=== PATIENT | female | born 1995 | race Two or more races ===

== ENCOUNTER 2020-02-04 09:50 | Inpatient (IN) | payer OTHER ==
[2020-02-04] MEDS ORDERED: ELECTROLYTE-148 SOLN 1,000 ML IV SCH ×2 (11:00→13:30)
[2020-02-04 11:34] VITALS: BMI 29.2
[2020-02-04 12:35] LABS: BASO % 0.4 % (0-2.0); EOS % 3.1 % (0-4.5); HEMATOCRIT 38.8 % (32.4-45.2); HEMOGLOBIN 12.9 GM/dL (10.7-15.3); MCH 29.2 pg (25.7-33.7); MCHC 33.2 g/dl (32.0-36.0); MEAN CELL VOLUME 87.8 fl (80-96); MEAN PLT VOLUME 10.3 fl (7.5-11.1); MONO % 8.6 % (3.8-10.2); NEUT % 70.9 % (42.8-82.8); PLATELET COUNT 173 K/MM3 (134-434); RBC 4.42 M/mm3 (3.60-5.2); RDW 13.4 % (11.6-15.6); WHITE BLOOD COUNT 11.7 K/mm3 (4.0-10.0)
[2020-02-04 12:40] LABS: INR 0.95 (0.83-1.09); PROTHROMBIN TIME (PATIENT) 11.2 SEC (9.7-13.0)
[2020-02-04 12:43] LABS: ACTIVATED PTT 27.1 SECONDS (25.2-36.5)
[2020-02-04] MEDS ORDERED: OXYTOCIN 30 UNITS in 0.9% NS 30 UNIT/500 ML INFUS.BAG IVPB ONE (13:08)
[2020-02-04 13:16] LABS: POTASSIUM 4.2 mmol/L (3.5-5.1)
--- NOTE | 2020-02-04 13:24 | HP ---
Past Medical History - Admission History of Present Illness: 24yo @ 39wks by LMP/sono here for elective IOL, as she requests a female provider. PNC Initially at [facility] [place] [facility], transferred at 37 weeks uncomplicated History Source: Patient Limitations to Obtaining History: No Limitations, Language Barrier - Past Medical History [employer]: No: Alzheimer's, CVA, Dementia, Migraine, Multiple Sclerosis, Peripheral Ne uropathy, Parkinson's, Seizure, Syncope, TIA, Vertigo, Other Cardiovascular: No: AFIB, Aneurysm, Aortic Insufficiency, Aortic Stenosis, CAD, CHF, Deep Vein Thrombosis, HTN, Hyperlipdemia, FL, Mitral Insufficiency, Mitral Stenosis, Murmur, Pulmonary Hypertension, Other Pulmonary: No: Asthma, Bronchitis, Cancer, COPD, O2 Dependent, Pneumonia, Previously Intubated, Pulmonary Embolus, Pulmonary Fibrosis, Sleep Apnea, Other Gastrointestinal: No: Ascites, Cancer, Constipation, Crohn's Disease, Diverticulitis, Diverticulosis, Esophageal Varices, Gastritis, GERD, GI Bleed, Hemorrhoids, Hiatal Hernia, Inflamatory Bowel Disease, Irritable Bowel Disease, Pancreatitis, Peptic Ulcer Disease, Ulcerative Colitis, Other Hepatobiliary: No: Cirrhosis, Cholelithiasis, Cholecystitis, Choledocholithiasis, Hepatitis A, Hepatitis B, Hepatitis C, Other Renal/: No: Renal Failure, Renal Inusuff, BPH, Cancer, Hematuria, Hemodialysis, Neurogenic Bladder, Renal Calculi, UTI, Other Reproductive: No: Ectopic , Endometriosis, Fibroids, PID, Polycystic Ovary Syndrome, Postmenopausal, Other ...: 2 ...Para: 0 ...Term: 0 ...: 0 ...Spon : 1 ...Induced : 0 ...Living Children: 0 ...Multiple Gestation: 0 ...LMP: 05/06/19 ... Weeks Gestation by Dates: 39.1 ...EDC by Dates: 02/10/20 ...EDC by Sono: 02/09/20 Heme/Onc: No: Anemia, B12 Deficiency, Bleeding Disorder, Cancer, Current Chemotherapy, Current Radiation Therapy, Hemochromatosis, Hypercoaguable State, Myeloproliferative Synd, Sickle Cell Disease, Sickle Cell Trait, Thrombocytopenia, Other Infectious Disease: No: AIDS, C-Diff, Herpes Zoster, HIV, MRSA, STD's, Tuberculosis, VREF, Other Psych: No: Addictions, Anxiety, Bipolar, Depression, Panic, Psychosis, Schizophrenia, Other Musculoskeletal: No: Bursitis, Chronic low back pain, Hemiparesis, Hemiplegia, Osteoarthritis, Paraplegia, Other - Past Surgical History Hx Myomectomy: No Hx Transabdominal Cerclage: No - Smoking History Smoking history: Never smoked Have you smoked in the past 12 months: No - Alcohol/Substance Use Hx Alcohol Use: No Home Medications - Allergies Allergies/Adverse Reactions: Allergies Allergy/AdvReac Type Severity Reaction Status Date / Time No Known Allergies Allergy Verified 02/04/20 11:16 - Home Medications Home Medications: Ambulatory Orders Pnv No.95/Ferrous Fum/Folic AC [ Vitamin Tablet] 1 each PO DAILY 02/04/20 Review of Systems - Review of Systems Constitutional: reports: No Symptoms Cardiovascular: reports: No Symptoms Gastrointestinal: reports: No Symptoms Physical Exam - Maternity Vital Signs: Vital Signs Temperature 97.9 F 02/04/20 09:50 Pulse Rate 103 H 02/04/20 09:50 Respiratory Rate 18 02/04/20 09:50 Blood Pressure 124/79 02/04/20 09:50 O2 Sat by Pulse Oximetry (%) - Abdominal Exam/OB Number of Fetuses: Single Presentation: Vertex Contractions: No Intensity: Unaware Monitor Mode: External Heart Rate Location: [facility] Category: I Accelerations: Non-Uniform Decelerations: None - Vaginal Exam/OB Dilatation (cm): 2 Effacement (%): 50 Amniotic Membrane Status: Intact Presentation: Vertex/Position Station: -3 - Labs Lab Results: CBC, BMP 02/04/20 11:46 02/04/20 11:46 Assessment/Plan 24yo @ 39.1wks here for elective IOL, for female provider preference Admit to L&D NPO, IVFs Barfield bulb/Pitocin Epidural prn Anticipate ABBY Montes MD
[2020-02-04] MEDS ORDERED: OXYTOCIN 30 UNITS in 0.9% NS 30 UNIT/500 ML INFUS.BAG IVPB SCH (13:30)
[2020-02-04 13:31] LABS: BLOOD UREA NITROGEN 7.6 mg/dL (7-18); CALCIUM 9.1 mg/dL (8.5-10.1); CREATININE 0.5 mg/dL (0.55-1.3)
--- NOTE | 2020-02-04 14:36 | PN ---
Progress Note, Labor Vaginal Exam #1 Labor Exam Date: 02/04/20 Labor Exam Time: 14:34 Heart Rate (range): Cat I Dilatation: 2-3 Effacement (%): 50 Amniotic Membrane Status: Intact Presentation: Vertex/Position Station: -3 Remarks: Pt comfortable Barfield bulb placed, continue with pitocin Anticipate Ashley Montes MD
[2020-02-04] MEDS ORDERED: BUTORPHANOL TARTRATE 1 MG/ML VIAL IVPB ONE (15:19)
[2020-02-04] MEDS ORDERED: PROMETHAZINE HCL 25 MG/1 ML VIAL IVPB ONE (15:19)
[2020-02-04] MEDS ORDERED: BUTORPHANOL TARTRATE 2 MG/ML VIAL ONE (15:21)
--- NOTE | 2020-02-04 18:34 | PN ---
Progress Note, Labor Vaginal Exam #2 Labor Exam Date: 02/04/20 Labor Exam Time: 18:20 Heart Rate (range): Cat I Dilatation: 5 Effacement (%): 80 Amniotic Membrane Status: Intact Presentation: Vertex/Position Station: -3 Remarks: Barfield bulb out Pt more uncomfortable Amenable to epidural AROM next check Anticipate ABBY Montes MD
[2020-02-04] MEDS ORDERED: FENTANYL/BUPIVACAINE/NS/PF - PCEA - 50 ML DISP.SYRIN EP ONE (20:17)
[2020-02-04] MEDS ORDERED: PCA PUMP NR ONE (20:18)
[2020-02-04] MEDS ORDERED: NALOXONE HCL 0.4 MG/ML VIAL IVPUSH PRN (20:31)
[2020-02-04] MEDS ORDERED: BUPIVACAINE HCL/PF 0.25% (2.5MG/ML) 10 ML VIAL ONE (20:33)
[2020-02-04] MEDS ORDERED: FENTANYL/BUPIVACAINE/NS/PF - PCEA - 50 ML DISP.SYRIN EP SCH (20:45)
[2020-02-04] MEDS ORDERED: OXYTOCIN 20 UNITS in 0.9% NS 20 UNIT/1,000 ML INFUS.BAG IV ONE (21:52)
--- NOTE | 2020-02-04 22:25 | PN ---
Progress Note, Labor Vaginal Exam #3 Labor Exam Date: 02/04/20 Labor Exam Time: 22:24 Heart Rate (range): Cat I Dilatation: 5 Effacement (%): 100 Amniotic Membrane Status: Ruptured Presentation: Vertex/Position Station: -3 Remarks: AROM, clears IUPC placed given no change despite pitocin Comfortable s/p epidural Ashley Montes MD
--- NOTE | 2020-02-05 00:31 | PN ---
Progress Note, Labor Vaginal Exam #4 Labor Exam Date: 02/05/20 Labor Exam Time: 00:30 Heart Rate (range): Cat I Dilatation: 5 Effacement (%): 100 Amniotic Membrane Status: Ruptured Presentation: Vertex/Position Station: -2 Remarks: Unchanged over last 2 hours Will reassess in 4 hours, discussed if no change, need for possible C/S FHT Cat I Pt comfortable with epidural Ashley Montes MD
[2020-02-05] MEDS ORDERED: FENTANYL/BUPIVACAINE/NS/PF - PCEA - 50 ML DISP.SYRIN EP ONE ×2 (01:12→05:09)
[2020-02-05] MEDS ORDERED: BUPIVACAINE HCL/PF 0.25% (2.5MG/ML) 10 ML VIAL ONE (01:40)
--- NOTE | 2020-02-05 03:03 | PN ---
Progress Note, Labor Vaginal Exam #5 Labor Exam Date: 02/05/20 Labor Exam Time: 03:02 Heart Rate (range): Cat I Dilatation: 9 Effacement (%): 100 Amniotic Membrane Status: Ruptured Presentation: Vertex/Position Station: -1 Remarks: Pt comfortable Now making good change Continue care Anticipate ABBY Montes MD
[2020-02-05] MEDS ORDERED: LIDOCAINE HCL 1% PRESERVATIVE FREE - 30ML VIAL ONE (04:32)
[2020-02-05] MEDS ORDERED: OXYTOCIN 20 UNITS in 0.9% NS 20 UNIT/1,000 ML INFUS.BAG IV ONE (04:33)
--- NOTE | 2020-02-05 07:23 | PN ---
Progress Note, Labor Vaginal Exam #5 Labor Exam Date: 02/05/20 Labor Exam Time: 07:21 Heart Rate (range): Cat I Dilatation: 10 Effacement (%): 100 Amniotic Membrane Status: Ruptured Presentation: Vertex/Position Station: +1 Remarks: Pushing x 90 minutes. Caput +1 at baseline +2 with pushing but head still 0 station Wants to avoid , but may be necessary if no change in station within the hour despite pushing. Ashley Montes MD
[2020-02-05] MEDS ORDERED: BENZOCAINE 20% 57 GM BOTTLE TP PRN (08:12)
[2020-02-05] MEDS ORDERED: BENZOCAINE 28 GM HEMORRHOIDAL OINTMENT TP PRN (08:12)
[2020-02-05] MEDS ORDERED: METHYLERGONOVINE MALEATE 0.2 MG/1 ML AMP IM PRN (08:12)
[2020-02-05] MEDS ORDERED: WITCH HAZEL 50% (TUCKS) 40 PAD/JAR PAD TP PRN (08:12)
[2020-02-05] MEDS ORDERED: BISACODYL 10 MG SUPP.RECT RC PRN (08:12)
[2020-02-05] MEDS ORDERED: IBUPROFEN 600 MG TABLET (FP) PO PRN (08:12)
[2020-02-05] MEDS ORDERED: ACETAMINOPHEN 325 MG TABLET (FP) PO PRN (08:12)
--- NOTE | 2020-02-05 08:12 | PN ---
Delivery - Delivery Section: Primary, Repeat, Low Flap Transverse, High Transverse, Inverted T, Classical Type of Anesthesia: Local, Epidural Episiotomy/Laceration: Midline, 2nd degree EBL (cc): 400 Delivery, Single - Stages of Labor Placenta: Yes: Spontaneous - Condition of Gender: Female Position: Right, OA - 1 Minute Total Score: 9 5 Minutes Total Score: 9 - Feeding Plan Initial Plan: Elected not to breastfeed exclusively throughout hospitalization Remarks - Remarks Remarks: of VFI from DEMETRICE position over midline episiotomy. Epidural anesthesia and local anesthesia injected prior to episiotomy. No nuchal. No meconium. Spontaneous delivery of anterior shoulder and body. Infant placed on mother's abdomen. Cord clamped and cut by provider and FOB. Weight pending to allow skin to skin. Apgars 9/9. Spontaneous delivery of intact placenta with 3VC. Fundus firm. Perineum inspected, only midline episiotomy identified and repaired with 3-0 chromic. EBL 400. Mother and baby doing well. Estella Montse MD
[2020-02-05] MEDS ORDERED: OXYTOCIN 20 UNITS in 0.9% NS 20 UNIT/1,000 ML INFUS.BAG IV SCH (08:15)
[2020-02-05] MEDS ORDERED: PCA PUMP NR ONE (10:32)
[2020-02-05] MEDS: PRENATAL VITAMINS W/ FOLIC ACID TABLET (FP) PO SCH (12:13)
[2020-02-06 09:43] LABS: BASO % 0.2 % (0-2.0); EOS % 1.7 % (0-4.5); HEMATOCRIT 31.2 % (32.4-45.2); HEMOGLOBIN 10.1 GM/dL (10.7-15.3); LYMPH % 14.4 % (8-40); MCH 28.9 pg (25.7-33.7); MCHC 32.3 g/dl (32.0-36.0); MEAN CELL VOLUME 89.4 fl (80-96); MEAN PLT VOLUME 10.1 fl (7.5-11.1); MONO % 7.7 % (3.8-10.2); PLATELET COUNT 165 K/MM3 (134-434); RBC 3.49 M/mm3 (3.60-5.2); RDW 13.7 % (11.6-15.6); WHITE BLOOD COUNT 18.4 K/mm3 (4.0-10.0)
[2020-02-06] MEDS: PRENATAL VITAMINS W/ FOLIC ACID TABLET (FP) PO SCH (10:40)
[2020-02-06 11:17] VITALS: BP 96/65; PULSE 96; TEMP 97.8
[2020-02-06] MEDS ORDERED: SENNOSIDES/DOCUSATE COMBO (SENNA PLUS) TABLET (UD) PO PRN (22:00)
== END 2020-02-06 11:40 | disposition home or self-care (01) | DRG 560 ==
LOC: JLDR 09:50 → J3W 02-05 14:35
PROVIDERS: ADMIT Obstetrics & Gynecology; ATTEND Obstetrics & Gynecology
PROC: 0U7C7ZZ Dilation of Cervix, Via Natural or Artificial Opening (ICD-10-PCS; 2020-02-04)
PROC: 3E033VJ Introduction of Other Hormone into Peripheral Vein, Percutaneous Approach (ICD-10-PCS; 2020-02-04)
PROC: 10E0XZZ Delivery of Products of Conception, External Approach (ICD-10-PCS; principal; 2020-02-05)
PROC: 0KQM0ZZ Repair Perineum Muscle, Open Approach (ICD-10-PCS; 2020-02-05)
PROC: 0W8NXZZ Division of Female Perineum, External Approach (ICD-10-PCS; 2020-02-05)
DX: O70.1 Second degree perineal laceration during delivery (principal); Z3A.39 39 weeks gestation of pregnancy; Z37.0 Single live birth
CPT/HCPCS: 36415; 59409; 80048; 85025; 85610; 85730; 86780; 86850; 86900; 86901

== ENCOUNTER 2021-04-17 11:22 | Emergency (ER) | payer OTHER ==
[2021-04-17 11:28] VITALS: BMI 31.4
[2021-04-17 13:19] VITALS: BP 106/64; PULSE 90; TEMP 98.2
== END 2021-04-17 13:35 | disposition home or self-care (01) ==
LOC: JER 11:22
DX: H60.503 Unspecified acute noninfective otitis externa, bilateral (principal)
CPT/HCPCS: 99283-25

== ENCOUNTER 2021-05-19 11:00 | Inpatient (IN) | payer OTHER ==
[2021-05-19] MEDS ORDERED: BUTORPHANOL TARTRATE 2 MG/ML VIAL IVPB ONE (11:46)
[2021-05-19] MEDS ORDERED: PROMETHAZINE HCL 25 MG/1 ML VIAL IVPB ONE (11:46)
[2021-05-19] MEDS: DEXTROSE 5%-LACTATED RINGERS 1,000 ML IV SCH (12:30)
[2021-05-19 12:41] VITALS: BMI 34.9
[2021-05-19 12:46] LABS: BASO % 0.2 % (0-2.0); EOS % 3.1 % (0-4.5); HEMATOCRIT 36.9 % (32.4-45.2); HEMOGLOBIN 12.5 GM/dL (10.7-15.3); LYMPH % 19.7 % (8-40); MCH 29.1 pg (25.7-33.7); MCHC 33.9 g/dl (32.0-36.0); MEAN CELL VOLUME 85.8 fl (80-96); MEAN PLT VOLUME 9.5 fl (7.5-11.1); MONO % 7.4 % (3.8-10.2); NEUT % 69.6 % (42.8-82.8); PLATELET COUNT 156 10^3/uL (134-434); RDW 14.2 % (11.6-15.6); WHITE BLOOD COUNT 7.6 K/mm3 (4.0-10.0)
[2021-05-19 12:47] LABS: INR 0.96 (0.83-1.09); PROTHROMBIN TIME (PATIENT) 11.2 SEC (9.7-13.0)
[2021-05-19 12:49] LABS: ACTIVATED PTT 24.2 SECONDS (25.2-36.5)
[2021-05-19 13:00] LABS: BLOOD UREA NITROGEN 4.4 mg/dL (7-18); CALCIUM 8.7 mg/dL (8.5-10.1)
[2021-05-19] MEDS: MISOPROSTOL 100 MCG TABLET PO SCH ×2 (13:00→18:24)
[2021-05-19 13:04] LABS: CREATININE 0.5 mg/dL (0.55-1.3)
[2021-05-19] MEDS ORDERED: PCA PUMP NR ONE (14:30)
[2021-05-19] MEDS ORDERED: FENTANYL/BUPIVACAINE/NS/PF - PCEA - 50 ML DISP.SYRIN EP ONE (14:30)
[2021-05-19] MEDS ORDERED: NALOXONE HCL 0.4 MG/ML VIAL IVPUSH PRN (15:21)
[2021-05-19] MEDS ORDERED: FENTANYL/BUPIVACAINE/NS/PF - PCEA - 50 ML DISP.SYRIN EP SCH (15:30)
[2021-05-19] MEDS ORDERED: OXYTOCIN 20 UNITS in 0.9% NS 20 UNIT/1,000 ML INFUS.BAG IV ONE (16:58)
[2021-05-19] MEDS ORDERED: LIDOCAINE HCL 1% PRESERVATIVE FREE - 30ML VIAL ONE (17:09)
[2021-05-19] MEDS ORDERED: METHYLERGONOVINE MALEATE 0.2 MG/1 ML AMP IM PRN (17:34)
[2021-05-19] MEDS ORDERED: BISACODYL 10 MG SUPP.RECT RC PRN (17:34)
[2021-05-19] MEDS ORDERED: ACETAMINOPHEN 325 MG TABLET (FP) PO PRN (17:34)
[2021-05-19] MEDS ORDERED: WITCH HAZEL 50% (TUCKS) 40 PAD/JAR PAD TP PRN (17:34)
[2021-05-19] MEDS ORDERED: BENZOCAINE 28 GM HEMORRHOIDAL OINTMENT TP PRN (17:34)
[2021-05-19] MEDS ORDERED: BENZOCAINE 20% 57 GM BOTTLE TP PRN (17:34)
[2021-05-19] MEDS ORDERED: OXYTOCIN 20 UNITS in 0.9% NS 20 UNIT/1,000 ML INFUS.BAG IV SCH (17:45)
[2021-05-19 18:48] LABS: CORD BASE EXCESS -4.4 mmol/L (0-2); CORD HCO3 21.2 mmHg (20-29); CORD PCO2 40.8 mmHg (30-78); CORD pH 7.333 (7.14-7.44)
[2021-05-20] MEDS: MISOPROSTOL 100 MCG TABLET PO SCH (00:31)
[2021-05-20] MEDS: FERROUS SO4 325 MG TABLET (FP) PO SCH ×2 (08:50→17:59)
[2021-05-20 08:56] LABS: BASO % 0.2 % (0-2.0); EOS % 0.8 % (0-4.5); HEMATOCRIT 32.1 % (32.4-45.2); HEMOGLOBIN 10.9 GM/dL (10.7-15.3); LYMPH % 14.2 % (8-40); MCH 29.3 pg (25.7-33.7); MEAN CELL VOLUME 86.1 fl (80-96); MEAN PLT VOLUME 9.6 fl (7.5-11.1); MONO % 6.8 % (3.8-10.2); PLATELET COUNT 145 10^3/uL (134-434); RBC 3.73 M/mm3 (3.60-5.2); RDW 14.2 % (11.6-15.6); WHITE BLOOD COUNT 13.3 K/mm3 (4.0-10.0)
[2021-05-20] MEDS: PRENATAL VITAMINS W/ FOLIC ACID TABLET (FP) PO SCH (11:51)
[2021-05-20] MEDS: IBUPROFEN 600 MG TABLET (FP) PO PRN (21:08)
[2021-05-20] MEDS: DEXTROSE 5%-LACTATED RINGERS 1,000 ML IV SCH (21:09)
[2021-05-20] MEDS ORDERED: SENNOSIDES/DOCUSATE COMBO (SENNA PLUS) TABLET (UD) PO PRN (22:00)
[2021-05-21] MEDS: FERROUS SO4 325 MG TABLET (FP) PO SCH (09:28)
[2021-05-21] MEDS: IBUPROFEN 600 MG TABLET (FP) PO PRN (09:28)
[2021-05-21] MEDS: PRENATAL VITAMINS W/ FOLIC ACID TABLET (FP) PO SCH (09:28)
[2021-05-21 11:37] VITALS: BP 114/79; PULSE 76; TEMP 97.9
== END 2021-05-21 12:55 | disposition home or self-care (01) | DRG 560 ==
LOC: JLDR 11:00 → J3W 20:30
PROVIDERS: ADMIT Obstetrics & Gynecology; ATTEND Obstetrics & Gynecology
PROC: 10E0XZZ Delivery of Products of Conception, External Approach (ICD-10-PCS; principal; 2021-05-19)
PROC: 0W8NXZZ Division of Female Perineum, External Approach (ICD-10-PCS; 2021-05-19)
PROC: 0KQM0ZZ Repair Perineum Muscle, Open Approach (ICD-10-PCS; 2021-05-19)
DX: O70.1 Second degree perineal laceration during delivery (principal); O69.81X0 Labor and delivery complicated by cord around neck, without compression, not applicable or unspecified; Z3A.38 38 weeks gestation of pregnancy; Z37.0 Single live birth
CPT/HCPCS: 36415; 36600; 59409; 80048; 82803; 85025; 85610; 85730; 86780; 86850; 86900; 86901; C9803; U0003; U0005